=== PATIENT | female | born 1955 | race Caucasian/White ===

== ENCOUNTER 2019-09-20 17:23 | Inpatient (IN) | payer MEDICAID, MEDICARE ==
[~2019-09-20] VITALS: Ht 153.7 cm; Wt 92.1 kg
[~2019-09-20 17:23] MED LIST: ALBU8.5H8 INH; CELE200C PO; CLOT15CR5 TP; DIAZ5TAB4 PO; DICL100G16 TP; DULO60CA45 PO; FLUT16SP2 BNOSTRILS; GABA-536 PO; HYDR200T4 PO; ISOS60TA4 PO; MORP15TA PO; NEBI10TA2 PO; ONDA-97 PO; PRED10TA PO; RANI150C4 PO; RANO10003 PO; TRAM50TA2 PO; TRAZ-182 PO; [UNRECOGNIZED DRUG - CODE] MC
[2019-09-20] MEDS ORDERED: ONDANSETRON HCL/PF 4 MG/2 ML VIAL ONE (18:15)
[2019-09-20 18:20] LABS: BASOPHILS % (AUTO) 0.4 % (0.0-2.0); HEMATOCRIT 38 % (33-45); HEMOGLOBIN 12.4 g/dL (11.5-14.8); LYMPHOCYTES # (AUTO) 2.5 /CMM (0.8-4.8); LYMPHOCYTES % (AUTO) 22.1 % (20.0-44.0); MEAN CORPUSCULAR HGB CONC 33 g/dl (31.0-36.0); MEAN CORPUSCULAR VOLUME 91 fL (82-100); MONOCYTES # (AUTO) 0.8 /CMM (0.1-1.30); MONOCYTES % (AUTO) 7.4 % (2.0-12.0); NEUTROPHILS # (AUTO) 7.9 /CMM (1.8-8.9); NEUTROPHILS % (AUTO) 69.1 % (43.0-81.0); PLATELET COUNT (AUTO) 263 /CMM (150-450); RED BLOOD CELL COUNT(AUTO) 4.12 MIL/uL (4.0-5.2); WHITE BLOOD COUNT (AUTO) 11.4 K/uL (4.3-11.0)
--- NOTE | 2019-09-20 18:28 | NUR ---
BIBS FROM HOME TO ER BED 12. AAOX4. NOT IN RESP DISTRESS, AMBUALTORY. CAME IN FOR L CHEST PAIN SINCE SUNDAY AND NAUSEA W/ VOMMITING SINCE SUNDAY. PER PT, SHE MIGHT HAVE HAD FOOD POISONING LAST SUNDAY AND HAVE BEEN NAUSEOUS AND VOMMITING. PT ALSO VERBALIZED THAT SHE HAD CHEST PAIN SINCE MONDAY 05/29 [place] NON RADIATING. KHADIJAH MCDANIEL WAS AT THE BEDSIDE FOR EVAL. ORDERS RECEIVED NOTED AND CARRIED OUT. IV LINE ON R HAND 20GH. BLOO DRAWNAND SENT TO LAB.
[2019-09-20] MEDS ORDERED: ONDANSETRON HCL/PF 4 MG/2 ML VIAL IVP ONE (18:30)
[2019-09-20] MEDS ORDERED: IV NS 0.9% 500 ML BAG IV ONE (18:30)
[2019-09-20 18:31] LABS: CALCIUM, SERUM 9.5 mg/dL (8.5-10.1); CARBON DIOXIDE 29 mmol/L (21-32); CHLORIDE 103 mmol/L (98-107); CREATININE 1.1 mg/dL (0.6-1.3); GLUCOSE 91 mg/dL (74-106); POTASSIUM 3.8 mmol/L (3.5-5.1); SODIUM SERUM 140 mmol/L (136-145); UREA NITROGEN, BLOOD 13 mg/dL (7-18)
[2019-09-20 18:36] LABS: ALANINE AMINOTRANSFERASE 21 U/L (12-78); ALBUMIN 3.4 g/dL (3.4-5.0); ALKALINE PHOSPHATASE 110 U/L (46-116); ASPARTATE AMINOTRANSFERASE 15 U/L (15-37); BILIRUBIN,DIRECT 0.1 mg/dL (0.0-0.2); BILIRUBIN,TOTAL 0.4 mg/dL (0.2-1.0); LIPASE 84 U/L (73-393); TOTAL PROTEIN, SERUM 7.2 g/dL (6.4-8.2)
[2019-09-20 19:05] LABS: BILIRUBIN,URINE Negative (NEGATIVE); BLOOD, URINE Negative Ery/uL (NEGATIVE); COLOR,URINE Yellow (YELLOW); KETONES,URINE Negative (NEGATIVE); LEUKOCYTE ESTERASE ,URINE Trace (NEGATIVE); NITRITE, URINE Positive (NEGATIVE); PROTEIN,URINE Negative (NEGATIVE); UGLUCOSE Negative (NEGATIVE); UROBILINOGEN,URINE 0.2 EU/dL (0.2)
[2019-09-20 19:06] LABS: APPEARANCE,URINE HAZY (CLEAR)
[2019-09-20 19:28] LABS: BACTERIA,URINE Few /HPF (None Seen); COARSE GRANULAR CASTS,URINE Few /LPF (None Seen); RBC,URINE 0-2 /HPF (0-2); SQUAMOUS EPITHELIAL CELL,UR Few /HPF (None Seen)
--- NOTE | 2019-09-20 20:22 | NUR ---
COVID SWAB DONE AND SENT TO LAB
--- NOTE | 2019-09-20 22:02 | NUR ---
RN SUP CALLED FOR ROOM
--- NOTE | 2019-09-20 22:23 | NUR ---
KHADIJAH OLIVEIRA SPEAKING WITH DR. PARRA
--- NOTE | 2019-09-20 22:32 | NUR ---
REPORT GIVEN TO ISAIAH HOOD FOR LEENA.
--- NOTE | 2019-09-20 22:39 | NUR ---
PATIENT ARRIVED FROM ER, AWAKE, A/O X4. NO SOB NOTED. NO COMPLAIN OF CHEST PAIN. NO NAUSEA OR VOMITTING. CALL LIGHT WIHTIN REACH. BED IN LOWEST AND LOCKED POSITION. INSTRUCTED TO CALL FOR ASSISTANCE WHEN OOB, PATIENT VERBALIZED UNDERSTANDING. WITH RIGHT HAND IV INTACT. INFORMED MD - DR PARRA OF ADMISSION, WAITING FOR THE RESPONSE.
[2019-09-20 22:40] VITALS: BP 129/61
--- NOTE | 2019-09-20 22:50 | NUR ---
PT WAS TRANSPORTED TO UNIT ON [facility] WITH EMT AND RN AT BEDSIDE W/ ACLS PROTOCOL. NAD NOTED DURING TRANSPORT. PT AMBULATED WITH SBA USING A CANE.
[2019-09-20 23:00] VITALS: BP 129/61
[2019-09-21] MEDS ORDERED: ONDANSETRON HCL/PF 4 MG/2 ML VIAL IVP PRN
[2019-09-21] MEDS ORDERED: TRAMADOL HCL 50 MG TABLET PO PRN
[2019-09-21] MEDS ORDERED: TRAZODONE 50 MG TABLET PO PRN
[2019-09-21] MEDS ORDERED: MORPHINE SULFATE INJ 2 MG/ML DISP.SYRIN IV PRN
[2019-09-21] MEDS ORDERED: DIAZEPAM 5 MG TABLET PO PRN
--- NOTE | 2019-09-21 01:31 | NUR ---
PATIENT IN BED. CALL LIGHT WITHIN REACH. BED ALARM ON. BED IN LOWEST AND LOCKED POSITION.
[2019-09-21 03:57] VITALS: BP 120/58
[2019-09-21 06:02] VITALS: BP 120/58
--- NOTE | 2019-09-21 06:18 | NUR ---
[employer]USTRIAL [employer] SERVICE HELPER CLOSING NOTES: PATIENT WALKED TO THE BATHROOM WITH CANE, STEADY. VOIDED. WENT BACK TO THE BED.CALL LIGHT WITHIN REACH. BED ALARM ON. BED IN LOWEST AND LOCKED POSITION. PATIENT DENIES ANY NAUSEA, VOMITTING. PATIENT STATED THAT SHE IS STILL HAVING VERY SLIGHT CHEST PAIN, IT'S BETTER THAN IT WAS. SCD's ON BOTH LEGS ON.VITALS STABLE. AFEBRILE.
--- NOTE | 2019-09-21 07:20 | NUR ---
RN OPENING NOTES RECEIVED PATIENT IN BED, A/O X 4, ON ROOM AIR,,NO S/S OF RESPIRATORY DISTRESS. NOTED IV ACCESS RIGHT HAND # [address] ON [address] OF HEART WILL BE NPO. SAFETY MEASURES IN PLACE, BED LOCKED AND IN LOWEST POSITION, SIDE RAILS UP X 2. WILL CONTINUE TO MONITOR.
[2019-09-21 07:26] LABS: BASOPHILS % (AUTO) 0.3 % (0.0-2.0); HEMATOCRIT 36 % (33-45); HEMOGLOBIN 11.8 g/dL (11.5-14.8); LYMPHOCYTES # (AUTO) 3.1 /CMM (0.8-4.8); LYMPHOCYTES % (AUTO) 29.8 % (20.0-44.0); MEAN CORPUSCULAR HGB CONC 33 g/dl (31.0-36.0); MEAN CORPUSCULAR VOLUME 92 fL (82-100); MONOCYTES # (AUTO) 0.7 /CMM (0.1-1.30); MONOCYTES % (AUTO) 6.9 % (2.0-12.0); NEUTROPHILS # (AUTO) 6.3 /CMM (1.8-8.9); PLATELET COUNT (AUTO) 246 /CMM (150-450); RED BLOOD CELL COUNT(AUTO) 3.88 MIL/uL (4.0-5.2); WHITE BLOOD COUNT (AUTO) 10.3 K/uL (4.3-11.0)
[2019-09-21 07:45] LABS: ALANINE AMINOTRANSFERASE 19 U/L (12-78); ALKALINE PHOSPHATASE 88 U/L (46-116); ASPARTATE AMINOTRANSFERASE 13 U/L (15-37); BILIRUBIN,TOTAL 0.3 mg/dL (0.2-1.0); CALCIUM, SERUM 8.1 mg/dL (8.5-10.1); CARBON DIOXIDE 29 mmol/L (21-32); CHLORIDE 103 mmol/L (98-107); GLUCOSE 128 mg/dL (74-106); MAGNESIUM 2.3 mg/dL (1.8-2.4); PHOSPHORUS 4.6 mg/dL (2.5-4.9); POTASSIUM 3.5 mmol/L (3.5-5.1); SODIUM SERUM 141 mmol/L (136-145); TOTAL PROTEIN, SERUM 6.5 g/dL (6.4-8.2); UREA NITROGEN, BLOOD 13 mg/dL (7-18)
[2019-09-21 07:47] LABS: CHOLESTEROL 110 mg/dL (<200); HDL CHOLESTEROL 47 mg/dL (40-60); LDL 41 mg/dL (0-99); THYROID STIMULATING HORMONE 3.148 uIU/mL (0.358-3.74); TRIGLYCERIDES 128 mg/dL (30-150)
[2019-09-21 08:00] VITALS: BP 118/81
[2019-09-21] MEDS ORDERED: methylPREDNISolone SOD SUCC 125 MG/2ML VIAL IV ONE (08:00)
[2019-09-21] MEDS ORDERED: diphenhydrAMINE HCL 50 MG CAPSULE PO ONE (08:00)
[2019-09-21] MEDS: PANTOPRAZOLE 40 MG TABLET.DR PO SCH (08:17)
[2019-09-21 08:28] LABS: IRON, SERUM 47 ug/dl (50-175); TOTAL IRON BINDING CAPACITY 267 ug/dl (250-450)
[2019-09-21 08:32] LABS: FERRITIN 26 ng/mL (8-388)
[2019-09-21] MEDS: CEFTRIAXONE 1 G in IV D5W 50 ML IV SCH (08:50)
[2019-09-21] MEDS ORDERED: ISOSORBIDE MONONITRATE 60 MG TAB.SR.24H PO SCH (09:00)
[2019-09-21] MEDS: CELECOXIB 100 MG CAPSULE PO SCH (09:05)
[2019-09-21] MEDS: GABAPENTIN 400 MG CAPSULE PO SCH ×3 (09:05→16:08)
[2019-09-21] MEDS: ASPIRIN EC 325 MG TABLET.DR PO SCH (09:05)
[2019-09-21] MEDS: predniSONE 10 MG TABLET PO SCH (09:06)
[2019-09-21] MEDS: DULOXETINE HCL 30 MG CAPSULE.DR PO SCH (09:07)
[2019-09-21] MEDS: RANOLAZINE 500 MG TAB.ER.12H PO SCH (09:13)
[2019-09-21] MEDS: HYDROXYCHLOROQUINE 200 MG TABLET PO SCH (09:13)
[2019-09-21] MEDS: ENOXAPARIN SODIUM 40 MG/0.4 ML DISP.SYRIN SQ SCH (09:14)
--- NOTE | 2019-09-21 09:30 | NUR ---
RN NOTES CALLED PHARMACY, ISOSORBIDE NOT IN STOCKED CASSETTE NOR BOTH OMNICELLS. .
--- NOTE | 2019-09-21 11:45 | NUR ---
RN NOTES 0820 - TUNG FROM RADIOLOGY CALLED REGARDING A CT OF THE HEART. TO KEEP PT NPO , PER TUNG CT WILL BE DONE AROUND 1400. 1145- OBTAINED A SIGNED CONSENT FROM PATIENT AND IV l WRIST # 18 BY MICHEAL COLON.
--- NOTE | 2019-09-21 15:30 | NUR ---
FOLLOWED UP WITH RADIOLOGY REGARDING CT OF HEART, PER RADIOLOGY THEY NEED A NURSE. CALLED NURSING NUT THREADER TO CONFIRM, PER NS OKAY FOR PT TO HAVE DINNER AND RETURN NPO AFTER MIDNIGHT, CT OF HEART WILL NOT BE DONE TODAY.
[2019-09-21 16:00] VITALS: BP 134/70
--- NOTE | 2019-09-21 16:18 | NUR ---
RN NOTES, PATIENT A/O X 4 , SHE GAVE A VERBAL OKAY FOR RN TO SPEAK TO FAMILY MEMBER (MANGO) REGARDING HER STATUS.
--- NOTE | 2019-09-21 18:44 | NUR ---
RN CLOSING NOTES WILL ENDORSE PATIENT TO PM NURSE. PATIENT IN BED, A/O X 4, ON ROOM AIR,,NO S/S OF RESPIRATORY DISTRESS. IV ACCESS RIGHT HAND # 20 SL AND LEFT WRIST # 18, PATIENT AND FLUSHED. PATIENT WAITING ON CT OF HEART WILL BE NPO AFTER MIDNIGHT. SAFETY MEASURES IN PLACE, BED LOCKED AND IN LOWEST POSITION, SIDE RAILS UP X 2. WILL CONTINUE TO MONITOR.
--- NOTE | 2019-09-21 19:04 | NUR ---
MS RN OPENING NOTES: RECEIVED PATIENT IN BED, AWAKE,A/O X4. NO SOB NOTED. NO COMPLAIN OF PAIN. CALL LIGHT WITHIN REACH. BED ALARM TURNED ON. BED IN LOWEST AND LOCKED POSITION. SCD's PLACED BACK TO THE LEGS. NPO POST MN PATIENT IS AWARE,VERBALIZED UNDERSTANDING. CITY PLANNING AIDE AWARE.
--- NOTE | 2019-09-21 19:10 | NUR ---
RN NOTES MAHIN HIGHTOWER ENDORSED A MESSAGE FROM PATIENT. ADD CONTACT: CHI LIN . WILL ALSO ADD IN FACE-SHEET.
[2019-09-21 20:00] VITALS: BP 144/72
[2019-09-21 20:33] VITALS: BP 144/72
[2019-09-22 04:15] VITALS: BP 137/65
--- NOTE | 2019-09-22 04:15 | NUR ---
PATIENT COMPLAINED OF CHEST PAIN/TIGHTNESS, V/S TAKEN AND RECORDED, WNL. PATIENT COMPLAINED OF SHORTNESS OF BREATH, OXYGEN AT 3L/MIN. GIVEN, INFORMED DR PARRA. CHARGE NURSE MADE AWARE.
--- NOTE | 2019-09-22 04:15 | NUR ---
CHEST PAIN LEVEL IS 7/10.
[2019-09-22] MEDS ORDERED: NITROGLYCERIN 0.4 MG/TAB BOTTLE SL PRN (05:00)
--- NOTE | 2019-09-22 05:05 | NUR ---
CALLED THE PHARMACY TO VERIFY THE NITRO MED ORDERED.
--- NOTE | 2019-09-22 05:12 | NUR ---
PATIENT STATES THAT SHE TOOK HER OWN MED- NITROGLYCERINE 0.4MG 1 TAB SL AND ALBUTEROL 2 PUFFS INH. ADVISED PATIENT NOT TO TAKE OWN MEDS., PATIENT VERBALIZED UNDERSTANDING.
--- NOTE | 2019-09-22 05:16 | NUR ---
MAHIN BELL ASSISTED THE PATIENT TO THE BATHROOM.
--- NOTE | 2019-09-22 05:32 | NUR ---
PATIENT STATES THE CHEST PAIN WENT AWAY. PATIENT IN BED, HOB ELEVATED. WITH O2 AT 3L/MIN NASAL CANNULA. PATIENT IS COMFORTABLE.
--- NOTE | 2019-09-22 06:13 | NUR ---
MS RN CLOSING NOTES: PATIENT IN BED, AWAKE A/O X4. PATIENT IS COMFORTABLE AT THIS TIME. NO C/O CHEST PAIN. CALL LIGHT WITHIN REACH. BED ALARM ON. BED IN LOWEST AND LOCKED POSITION. WITH O2 AT 3L/MIN NC. HOB ELEVATED AT 30 DEGREES. NPO.
[2019-09-22 06:42] LABS: BASOPHILS % (AUTO) 0.2 % (0.0-2.0); HEMATOCRIT 40 % (33-45); HEMOGLOBIN 13.1 g/dL (11.5-14.8); LYMPHOCYTES # (AUTO) 1.2 /CMM (0.8-4.8); LYMPHOCYTES % (AUTO) 8.9 % (20.0-44.0); MEAN CORPUSCULAR HGB CONC 33 g/dl (31.0-36.0); MEAN CORPUSCULAR VOLUME 92 fL (82-100); MONOCYTES # (AUTO) 0.4 /CMM (0.1-1.30); MONOCYTES % (AUTO) 3.2 % (2.0-12.0); NEUTROPHILS # (AUTO) 11.5 /CMM (1.8-8.9); NEUTROPHILS % (AUTO) 87.7 % (43.0-81.0); PLATELET COUNT (AUTO) 277 /CMM (150-450); RED BLOOD CELL COUNT(AUTO) 4.38 MIL/uL (4.0-5.2); WHITE BLOOD COUNT (AUTO) 13.1 K/uL (4.3-11.0)
[2019-09-22 07:10] LABS: CREATININE 1.1 mg/dL (0.6-1.3); MAGNESIUM 2.5 mg/dL (1.8-2.4); PHOSPHORUS 4.3 mg/dL (2.5-4.9); POTASSIUM 3.9 mmol/L (3.5-5.1)
[2019-09-22] MEDS ORDERED: METOPROLOL TARTRATE INJ 5 MG/5 ML AMPUL IVP PRN (07:30)
[2019-09-22] MEDS ORDERED: NITROGLYCERIN 0.4 MG/TAB BOTTLE SL ONE (07:30)
--- NOTE | 2019-09-22 07:30 | NUR ---
CONSENT FOR CT ANGIO OF THE HEART SIGNED BY THE PATIENT AND ATTACHED TO THE CHART, ENDORSED.
--- NOTE | 2019-09-22 07:40 | NUR ---
RN MS JACKSON NOTES PATIENT IS AWAKE AND ALERT A/O X 4. WITH NO SIGNS OF DISTRESS IN ROOM AIR. IV ON THE R HAND #20G INTACT SL AND IV L WRIST #18G INTACT SL. COMPLAINS OF NO PAIN AT THIS MOMENT. BED IS IN LOW POSITION WITH SIDE RAILS UP X 2 FOR SAFETY. CALL LIGHT WITHIN REACH. WILL CONTINUE TO MONITOR.
[2019-09-22 08:09] VITALS: BP 138/62
[2019-09-22] MEDS ORDERED: methylPREDNISolone SOD SUCC 125 MG/2ML VIAL IV ONE (08:30)
[2019-09-22] MEDS ORDERED: diphenhydrAMINE HCL 50 MG CAPSULE PO ONE (08:30)
[2019-09-22] MEDS: predniSONE 10 MG TABLET PO SCH (09:00)
[2019-09-22] MEDS: ASPIRIN EC 325 MG TABLET.DR PO SCH ×2 (09:00→13:01)
[2019-09-22] MEDS ORDERED: ISOSORBIDE MONONITRATE (30MG) 30 MG TAB.SR.24H PO SCH (09:00)
[2019-09-22] MEDS: ENOXAPARIN SODIUM 40 MG/0.4 ML DISP.SYRIN SQ SCH (09:00)
[2019-09-22] MEDS ORDERED: PILOCARPINE HCL 5 MG TABLET PO SCH (09:00)
--- NOTE | 2019-09-22 09:00 | NUR ---
DID NOT ADMINISTERED PREDNISONE D/T GETTING SOLU-MEDROL IVP ONE TIME BEFORE GOING TO CT ANGIO FOR ANAPHYLAXIS.
[2019-09-22] MEDS ORDERED: IOHEXOL-350 100 ML VIAL IV ONE (09:25)
[2019-09-22] MEDS ORDERED: IV NS 0.9% 250 ML IV ONE (09:26)
--- NOTE | 2019-09-22 10:42 | NUR ---
RN NOTES: CTA procedure: Patient verbalizes understanding regarding the procedure, patient signed consent. IV g 18 inserted at right AC with good back flow of blood. Patient tolerated the CTA, denies any discomfort or pain at this time. no signs of any adverse reaction noted. Patient is stable to be transfer back to her room, report given to Adele Maher RN.
[2019-09-22] MEDS: GABAPENTIN 400 MG CAPSULE PO SCH ×3 (12:05→17:00)
[2019-09-22] MEDS: CELECOXIB 100 MG CAPSULE PO SCH (12:06)
[2019-09-22] MEDS: PANTOPRAZOLE 40 MG TABLET.DR PO SCH (12:06)
[2019-09-22] MEDS: HYDROXYCHLOROQUINE 200 MG TABLET PO SCH (12:44)
[2019-09-22] MEDS: DULOXETINE HCL 30 MG CAPSULE.DR PO SCH (12:44)
[2019-09-22] MEDS: RANOLAZINE 500 MG TAB.ER.12H PO SCH (12:57)
[2019-09-22] MEDS: CEFTRIAXONE 1 G in IV D5W 50 ML IV SCH (13:06)
[2019-09-22 16:38] VITALS: BP 132/60
--- NOTE | 2019-09-22 17:00 | NUR ---
DID NOT ADMINISTER GABAPENTIN PO MED BECAUSE LAST GIVEN AT 1500. ITS Q4H.
--- NOTE | 2019-09-22 17:22 | NUR ---
PATIENT VITAL SIGNS ARE STABLE, PATIENT COMPLAINTS OF NO PAIN AND HAS NO SIGNS OF SOB AND NO SIGNS OF DISTRESS. PATIENT DISCHARGE INSTRUCTIONS WERE EXPLAINED VERBALLY, TO CONTINUE WITH PRESCRIBED MEDICATIONS, FOLLOW UP WITH PRIMARY CARE DOCTOR AND RETURN TO THE ER IN CASE OF AN EMERGENCY. SHE VERBALLY READ INSTRUCTIONS BACK. IV'S WERE REMOVED WITH NO SIGNS OF BLEEDING AND COVERED. BELONGING LIST WAS COMPLETED AND SIGNED. LEFT THE HOSPITAL VIA WHEELCHAIR BY MAHIN WELLS AND GOT PICKED UP BY A PRIVATE CAR.
== END 2019-09-22 17:20 | disposition home or self-care (01) | DRG 198 ==
LOC: ER 17:26 → TELE 22:10 → MED 09-21 08:20
PROVIDERS: ADMIT Internal Medicine; ATTEND Internal Medicine
DX: R07.89 Other chest pain (principal); N39.0 Urinary tract infection, site not specified; E78.5 Hyperlipidemia, unspecified; E66.9 Obesity, unspecified; J45.909 Unspecified asthma, uncomplicated; M79.7 Fibromyalgia; Z87.820 Personal history of traumatic brain injury; Z79.899 Other long term (current) drug therapy; Z87.11 Personal history of peptic ulcer disease; M32.9 Systemic lupus erythematosus, unspecified; I25.10 Atherosclerotic heart disease of native coronary artery without angina pectoris; G40.909 Epilepsy, unspecified, not intractable, without status epilepticus; G89.29 Other chronic pain; F32.9 Major depressive disorder, single episode, unspecified; F41.9 Anxiety disorder, unspecified; K21.9 Gastro-esophageal reflux disease without esophagitis; Z68.39 Body mass index [BMI] 39.0-39.9, adult; D64.9 Anemia, unspecified; K11.7 Disturbances of salivary secretion; Z95.5 Presence of coronary angioplasty implant and graft; R53.1 Weakness
CPT/HCPCS: 36415; 71045-TC; 75574; 80048-TC; 80053-TC; 80061-TC; 80076-TC; 81000-TC; 82728-TC; 83540-TC; 83690-TC; 83735-TC; 83880; 84100-TC; 84443-TC; 84484-TC; 85025-TC; 87081-TC; 87086-TC; 93307-TC; G0378; J0696; J1650; J2405; J2930; J7040; J7050; J7060; Q0163; Q9967

== ENCOUNTER 2020-04-30 12:29 | Inpatient (IN) | payer MEDICAID ==
[~2020-04-30] VITALS: Ht 165.1 cm; Wt 90.7 kg
[~2020-04-30 12:29] MED LIST changes: -ISOS60TA4 PO; +ISOS60TA72 PO
--- NOTE | 2020-04-30 12:35 | NUR ---
Chest Pain x3days on/off, more on than off. Worse now. Took NTG and Asa. Patient a/ox4, breathing even and unlabored, no sob noted, needs attended, changed into a gown, attached to the carburetor mechanic. No distress noted.
--- NOTE | 2020-04-30 12:45 | NUR ---
IV LINE ESTABLISHED, BLOOD DRAWN AND SENT TO LAB.
[2020-04-30 12:54] LABS: BASOPHILS # (AUTO) 0.2 /CMM (0.0-0.2); BASOPHILS % (AUTO) 1.2 % (0.0-2.0); HEMATOCRIT 37 % (33-45); HEMOGLOBIN 12.2 g/dL (11.5-14.8); LYMPHOCYTES # (AUTO) 2.7 /CMM (0.8-4.8); LYMPHOCYTES % (AUTO) 19.6 % (20.0-44.0); MEAN CORPUSCULAR HGB CONC 33 g/dl (31.0-36.0); MEAN CORPUSCULAR VOLUME 89 fL (82-100); MONOCYTES # (AUTO) 1.1 /CMM (0.1-1.30); MONOCYTES % (AUTO) 7.8 % (2.0-12.0); NEUTROPHILS # (AUTO) 9.9 /CMM (1.8-8.9); NEUTROPHILS % (AUTO) 70.4 % (43.0-81.0); PLATELET COUNT (AUTO) 267 /CMM (150-450)
[2020-04-30 13:00] LABS: CALCIUM, SERUM 8.5 mg/dL (8.5-10.1); CARBON DIOXIDE 30 mmol/L (21-32); CHLORIDE 105 mmol/L (98-107); CREATININE 1.1 mg/dL (0.6-1.3); GLUCOSE 101 mg/dL (74-106); POTASSIUM 3.6 mmol/L (3.5-5.1); SODIUM SERUM 145 mmol/L (136-145); UREA NITROGEN, BLOOD 14 mg/dL (7-18)
[2020-04-30] MEDS ORDERED: ONDANSETRON HCL/PF 4 MG/2 ML VIAL IVP ONE (13:00)
[2020-04-30] MEDS ORDERED: PANTOPRAZOLE 40 MG VIAL IV ONE (13:00)
[2020-04-30] MEDS ORDERED: MORPHINE SULFATE INJ 2 MG/ML DISP.SYRIN IV ONE (13:00)
[2020-04-30] MEDS ORDERED: PANTOPRAZOLE 40 MG VIAL ONE (13:01)
[2020-04-30] MEDS ORDERED: ONDANSETRON HCL/PF 4 MG/2 ML VIAL ONE (13:01)
[2020-04-30] MEDS ORDERED: MORPHINE SULFATE INJ 4 MG/ML DISP.SYRIN ONE (13:01)
--- NOTE | 2020-04-30 13:09 | NUR ---
US TECH AT BEDSIDE
[2020-04-30 13:26] LABS: LYMPHOCYTES % (MANUAL) 29 % (16-48); MONOCYTES % (MANUAL) 4 % (0-11.0); NEUTROPHILS % (MANUAL) 67 (42-76)
[2020-04-30 13:28] LABS: ALBUMIN 3.2 g/dL (3.4-5.0); BILIRUBIN,DIRECT 0.1 mg/dL (0.0-0.2); BILIRUBIN,TOTAL 0.2 mg/dL (0.2-1.0)
[2020-04-30] MEDS ORDERED: ATOR40TA PO (13:58)
[2020-04-30] MEDS ORDERED: HYDR200T4 PO (13:58)
[2020-04-30] MEDS ORDERED: CHOL500062 PO (13:58)
[2020-04-30] MEDS ORDERED: NITR0.4T48 SL (13:58)
[2020-04-30] MEDS ORDERED: FAMO20TA8 PO (13:58)
[2020-04-30] MEDS ORDERED: METO-358 PO (13:58)
[2020-04-30] MEDS ORDERED: LEVE250T4 PO (13:58)
[2020-04-30] MEDS ORDERED: OXYB-58 PO (13:58)
[2020-04-30] MEDS ORDERED: CYCL30DR OP (13:58)
--- NOTE | 2020-04-30 14:12 | NUR ---
FROM [facility] ADMIT UNDER DR. SORENSON [phone] PER MICHA DURÁN
--- NOTE | 2020-04-30 14:30 | NUR ---
CALLED [facility] TO PRESENT
--- NOTE | 2020-04-30 14:35 | NUR ---
CALLED [facility] FOR CARDIO CONSULT
--- NOTE | 2020-04-30 14:36 | NUR ---
negative rapipd covid test.
--- NOTE | 2020-04-30 14:40 | NUR ---
CALLED FOR TELE BED.
[2020-04-30] MEDS ORDERED: FLUT10.62 IH (14:50)
--- NOTE | 2020-04-30 15:00 | NUR ---
GOT BED 109
--- NOTE | 2020-04-30 15:13 | NUR ---
REPORT GIVEN TO ELLYN COLON.
[2020-04-30] MEDS ORDERED: IOHEXOL-350 100 ML VIAL IV ONE (15:59)
[2020-04-30] MEDS ORDERED: IV NS 0.9% 250 ML IV ONE (16:00)
[2020-04-30] MEDS ORDERED: DIAZEPAM 5 MG TABLET PO PRN (16:00)
[2020-04-30] MEDS ORDERED: FLUTICASONE 44MCG 1 EA INHALER IH PRN (16:00)
[2020-04-30] MEDS ORDERED: CT SWABBABLE VALVE TRANS SET 1 EA INFUS.SET MC ONE (16:00)
[2020-04-30] MEDS ORDERED: TRAMADOL HCL 50 MG TABLET PO PRN (16:00)
[2020-04-30] MEDS ORDERED: NITROGLYCERIN 0.4 MG/TAB BOTTLE SL ONE (16:30)
[2020-04-30] MEDS ORDERED: METOPROLOL TARTRATE INJ 5 MG/5 ML AMPUL IVP PRN (16:30)
[2020-04-30] MEDS ORDERED: diphenhydrAMINE HCL 50 MG/ML VIAL ONE (16:31)
[2020-04-30] MEDS ORDERED: NITROGLYCERIN 0.4 MG/TAB BOTTLE ONE (16:32)
--- NOTE | 2020-04-30 16:59 | NUR ---
CTA DONE, PATIENT TOLERATED PROCEDURE WELL. BENADRYL GIVEN X1 PROPHYLACTIC. ENDORSED TO INPATIENT RN. NEEDS ATTENDED.
[2020-04-30] MEDS ORDERED: DICLOFENAC TOPICAL 100 GM GEL..GM. TP SCH (17:00)
[2020-04-30] MEDS ORDERED: diphenhydrAMINE HCL 50 MG/ML VIAL IV ONE (17:00)
[2020-04-30] MEDS: LEVETIRACETAM (250 MG) 250 MG TABLET PO SCH (18:20)
[2020-04-30] MEDS: GABAPENTIN 300 MG CAPSULE PO SCH (18:20)
[2020-04-30 20:00] VITALS: BP 101/47
--- NOTE | 2020-04-30 20:05 | NUR ---
RN NOTE PT RECEIVED IN BED, A/O X4, ON RA SATING 98%, HAS UNLABORED BRATHING, DENIES ANY PAIN ON TELE MONITOR SHOWING SR WITH HR IN 60s. SAFETY MEASURES IN PLACE.
[2020-04-30] MEDS ORDERED: ATORVASTATIN 40 MG TABLET PO SCH (22:00)
[2020-05-01] VITALS: BP 141/67
[2020-05-01 04:00] VITALS: BP 130/42
[2020-05-01 06:20] LABS: BASOPHILS % (AUTO) 0.2 % (0.0-2.0); EOSINOPHILS % (AUTO) 0.8 % (0.0-6.0); HEMATOCRIT 35 % (33-45); HEMOGLOBIN 11.3 g/dL (11.5-14.8); LYMPHOCYTES # (AUTO) 3.8 /CMM (0.8-4.8); LYMPHOCYTES % (AUTO) 27.1 % (20.0-44.0); MEAN CORPUSCULAR HGB CONC 33 g/dl (31.0-36.0); MEAN CORPUSCULAR VOLUME 89 fL (82-100); MONOCYTES # (AUTO) 0.8 /CMM (0.1-1.30); MONOCYTES % (AUTO) 5.8 % (2.0-12.0); NEUTROPHILS # (AUTO) 9.3 /CMM (1.8-8.9); NEUTROPHILS % (AUTO) 66.1 % (43.0-81.0); PLATELET COUNT (AUTO) 239 /CMM (150-450); RED BLOOD CELL COUNT(AUTO) 3.86 MIL/uL (4.0-5.2); WHITE BLOOD COUNT (AUTO) 14.1 K/uL (4.3-11.0)
--- NOTE | 2020-05-01 07:20 | NUR ---
RN OPENING NOTES RECEIVED PT AWAKE, A/O X4. ON RA SATING 98%. NO SOB OR ANY ACUTE RESPIRATORY DISTRESS AT THIS TIME. NO PAIN REPORTED. ON TELE MONITOR SHOWING SR. SKIN IS INTACT. IV ACCESS AT RAC #20 AND R HAND #20 BOTH INTACT, PATENT AND FLUSHED. SAFETY MEASURES IN PLACE. CALL LIGHT WITHIN REACH. BED LOCKED AND AT LOWEST POSITION WITH SIDE RAILS UP X2. WILL CONTINUE TO MONITOR.
[2020-05-01 07:33] LABS: CALCIUM, SERUM 8.7 mg/dL (8.5-10.1); CREATININE 1.2 mg/dL (0.6-1.3); POTASSIUM 4.2 mmol/L (3.5-5.1)
--- NOTE | 2020-05-01 07:40 | NUR ---
RN NOTE NO ACUTE CHANGES DURING MY SHIFT, PT REMAINED STABLE REPORT GIVEN TO ONCOMING SHIFT FOR LEENA.
[2020-05-01 08:00] VITALS: BP 120/48
[2020-05-01] MEDS ORDERED: OXYBUTYNIN CHLORIDE ER 5 MG TAB PO SCH (09:00)
[2020-05-01] MEDS ORDERED: HYDROXYCHLOROQUINE 200 MG TABLET PO SCH (09:00)
[2020-05-01] MEDS ORDERED: FAMOTIDINE (20 MG) 20 MG TABLET PO SCH (09:00)
[2020-05-01] MEDS ORDERED: predniSONE 10 MG TABLET PO SCH (09:00)
[2020-05-01] MEDS: LEVETIRACETAM (250 MG) 250 MG TABLET PO SCH (09:10)
[2020-05-01] MEDS: GABAPENTIN 300 MG CAPSULE PO SCH ×2 (09:10→12:19)
[2020-05-01 12:00] VITALS: BP 136/62
--- NOTE | 2020-05-01 13:38 | NUR ---
RN CLOSING NOTES DISCHARGED PT TO HOME ACCOMPANIED VIA LYFT. STABLE CONDITION. SKIN IS INTACT. NO PAIN REPORTED AT THIS TIME. DISCHARGE INSTRUCTIONS GIVEN TO PT. VERBALIZED UNDERSTANDING. VACCINATION IS UP TO DATE.
== END 2020-05-01 13:51 | disposition home or self-care (01) | DRG 198 ==
LOC: ER 12:34 → TELE1 15:39
PROVIDERS: ADMIT Internal Medicine; ATTEND Internal Medicine
DX: R07.89 Other chest pain (principal); M32.9 Systemic lupus erythematosus, unspecified; M79.7 Fibromyalgia; Z20.822 Contact with and (suspected) exposure to COVID-19; E78.5 Hyperlipidemia, unspecified; E66.9 Obesity, unspecified; I25.10 Atherosclerotic heart disease of native coronary artery without angina pectoris; J45.909 Unspecified asthma, uncomplicated; Z68.33 Body mass index [BMI] 33.0-33.9, adult; F41.9 Anxiety disorder, unspecified; Z87.11 Personal history of peptic ulcer disease
CPT/HCPCS: 36415; 71045-TC; 75574; 76700-TC; 80048-TC; 80076-TC; 83690-TC; 83880; 84484-TC; 85025-TC; 87081-TC; 93307-TC; C9113; C9803; G0378; J1200; J2270; J2405; J7050; Q9967

== ENCOUNTER 2020-12-28 16:53 | Emergency (ER) | payer OTHER ==
[~2020-12-28] VITALS: Ht 165.1 cm; Wt 91.2 kg
[~2020-12-28 16:53] MED LIST changes: -ALBU8.5H8 INH; +ATOR40TA PO; -CELE200C PO; +CHOL500062 PO; -CLOT15CR5 TP; +CYCL30DR EACHEYE; +FAMO20TA8 PO; +FLUT10.62 IH; -FLUT16SP2 BNOSTRILS; +LEVE250T4 PO; +METO-358 PO; -MORP15TA PO; -NEBI10TA2 PO; +NITR0.4T48 SL; -ONDA-97 PO; +OXYB-58 PO; -RANI150C4 PO; -TRAZ-182 PO; -[UNRECOGNIZED DRUG - CODE] MC
--- NOTE | 2020-12-28 16:55 | NUR ---
WARREN FROM URGENT CARE. PT C/O SHARP PAIN SINCE NOON. ASA 325 MG AND 1 NITRO SPRAY WAS GIVEN BY EMS. PT CAME IN WITH A L 20G IV ON R HAND. VITAL SIGNS WITHIN NORMAL LIMITS. PT IS A&OX4. EKG WAS TAKEN. DR NEFF AT BESIDE. LAB AT BEDSIDE. PT COVID TEST WAS COLLECTED AND SENT TO LAB.
[2020-12-28] MEDS ORDERED: NITROGLYCERIN 0.4 MG/TAB BOTTLE SL ONE (17:00)
[2020-12-28] MEDS ORDERED: NITROGLYCERIN 0.4 MG/TAB BOTTLE ONE (17:06)
[2020-12-28 17:32] LABS: CALCIUM, SERUM 8.8 mg/dL (8.5-10.1); CARBON DIOXIDE 24 mmol/L (21-32); CHLORIDE 104 mmol/L (98-107); CREATININE 1.1 mg/dL (0.6-1.3); GLUCOSE 140 mg/dL (74-106); POTASSIUM 4.3 mmol/L (3.5-5.1); SODIUM SERUM 140 mmol/L (136-145); UREA NITROGEN, BLOOD 12 mg/dL (7-18)
[2020-12-28 17:35] LABS: BASOPHILS % (AUTO) 0.4 % (0.0-2.0); EOSINOPHILS % (AUTO) 2.6 % (0.0-6.0); HEMATOCRIT 36 % (33-45); HEMOGLOBIN 12.1 g/dL (11.5-14.8); LYMPHOCYTES # (AUTO) 2.5 K/uL (0.8-4.8); MEAN CORPUSCULAR HGB CONC 33 g/dl (31.0-36.0); MEAN CORPUSCULAR VOLUME 95 fL (82-100); MONOCYTES # (AUTO) 0.9 K/uL (0.1-1.30); MONOCYTES % (AUTO) 7.6 % (2.0-12.0); NEUTROPHILS # (AUTO) 8.6 K/uL (1.8-8.9); NEUTROPHILS % (AUTO) 69.4 % (43.0-81.0); PLATELET COUNT (AUTO) 261 K/uL (150-450); WHITE BLOOD COUNT (AUTO) 12.5 K/uL (4.3-11.0)
[2020-12-28] MEDS ORDERED: ALBU8.5H8 IH (18:19)
[2020-12-28] MEDS ORDERED: PILO5TAB10 PO (18:19)
[2020-12-28] MEDS ORDERED: FLUT16SP16 (18:19)
[2020-12-28] MEDS ORDERED: MIRT-90 PO (18:19)
[2020-12-28] MEDS ORDERED: FLUT1BLS11 INH (18:19)
--- NOTE | 2020-12-28 19:59 | NUR ---
TOOK OVER PT CARE. PT AAOX4. RESTING COMFORTABLY. AWARE OF PLAN OF CARE.
--- NOTE | 2020-12-28 23:37 | NUR ---
PT STATING SHE DOES NOT WANT TO STAY IN THE ED. REQUESTING TO [facility]uyet.
[2020-12-28] MEDS ORDERED: NITR0.4T SL (23:39)
--- NOTE | 2020-12-28 23:45 | NUR ---
Patient does not wish to proceed with medical care recommended by Dr. Manuel Avila. Patient given information related to possible complications, up to and including , which could occur as a result of leaving the hospital at this time. Patient verbalizes understanding of risks involved due to leaving against medical advice. Patient has signed AMA form. IV removed. Catheter intact and site benign. Pressure and 4x4 applied to site. No bleeding noted.
[2020-12-29 00:47] VITALS: BP 123/69
== END 2020-12-29 00:48 | disposition left against medical advice (07) ==
LOC: ER 16:56
DX: R07.9 Chest pain, unspecified (principal); M79.7 Fibromyalgia; G40.909 Epilepsy, unspecified, not intractable, without status epilepticus; Z20.822 Contact with and (suspected) exposure to COVID-19; Z87.820 Personal history of traumatic brain injury; I25.10 Atherosclerotic heart disease of native coronary artery without angina pectoris; Z88.0 Allergy status to penicillin; Z88.6 Allergy status to analgesic agent; Z91.041 Radiographic dye allergy status; Z91.010 Allergy to peanuts; F32.9 Major depressive disorder, single episode, unspecified; Z79.899 Other long term (current) drug therapy; Z53.29 Procedure and treatment not carried out because of patient's decision for other reasons
CPT/HCPCS: 36415; 71045; 80048; 82550; 83880; 84484; 85025; 87081; 87426; 93005; 99291; C9803

== ENCOUNTER 2022-07-19 16:14 | Emergency (ER) | payer OTHER, BC ==
[~2022-07-19] VITALS: Ht 165.1 cm; Wt 91.2 kg
[~2022-07-19 16:14] MED LIST changes: +ALBU8.5H8 IH; -CHOL500062 PO; -FAMO20TA8 PO; -FLUT10.62 IH; +FLUT16SP16; +FLUT1BLS11 INH; +MIRT-90 PO; +NITR0.4T SL; -NITR0.4T48 SL; -OXYB-58 PO; +PILO5TAB10 PO; -PRED10TA PO
[2022-07-19 16:20] VITALS: BP 130/60
--- NOTE | 2022-07-19 16:23 | NUR ---
CALLED CODE STROKE.
--- NOTE | 2022-07-19 16:26 | NUR ---
Fatimah oleary in [facility] - 07/19/22 at 1628 by BRIELLE CODE STROKE
--- NOTE | 2022-07-19 16:27 | NUR ---
PT TO CT VIA ACLS PROTOCALS.
--- NOTE | 2022-07-19 16:30 | NUR ---
CALLED [facility] [phone] FLAKO PADGETT.
[2022-07-19 16:32] LABS: BASOPHILS # (AUTO) 0.1 K/uL (0.0-0.2); BASOPHILS % (AUTO) 0.7 % (0.0-2.0); EOSINOPHILS % (AUTO) 3.2 % (0.0-6.0); HEMATOCRIT 37 % (33-45); HEMOGLOBIN 11.2 g/dL (11.5-14.8); LYMPHOCYTES # (AUTO) 2.6 K/uL (0.8-4.8); LYMPHOCYTES % (AUTO) 21.6 % (20.0-44.0); MEAN CORPUSCULAR HGB CONC 31 g/dl (31.0-36.0); MEAN CORPUSCULAR VOLUME 76 fL (82-100); MONOCYTES # (AUTO) 0.7 K/uL (0.1-1.30); MONOCYTES % (AUTO) 5.8 % (2.0-12.0); NEUTROPHILS # (AUTO) 8.2 K/uL (1.8-8.9); NEUTROPHILS % (AUTO) 68.7 % (43.0-81.0); PLATELET COUNT (AUTO) 296 K/uL (150-450); WHITE BLOOD COUNT (AUTO) 11.9 K/uL (4.3-11.0)
--- NOTE | 2022-07-19 16:37 | NUR ---
PT BACK FROM CT VIA ACLS PROTOCALS.
[2022-07-19 16:43] LABS: CALCIUM, SERUM 9.2 mg/dL (8.5-10.1); CARBON DIOXIDE 26 mmol/L (21-32); CHLORIDE 107 mmol/L (98-107); CREATININE 1.1 mg/dL (0.6-1.3); GLUCOSE 96 mg/dL (74-106); SODIUM SERUM 142 mmol/L (136-145); UREA NITROGEN, BLOOD 13 mg/dL (7-18)
[2022-07-19 16:49] LABS: ALANINE AMINOTRANSFERASE 18 U/L (12-78); ALBUMIN 3.7 g/dL (3.4-5.0); ALKALINE PHOSPHATASE 174 U/L (46-116); ASPARTATE AMINOTRANSFERASE 11 U/L (15-37); BILIRUBIN,DIRECT 0.1 mg/dL (0.0-0.2); BILIRUBIN,TOTAL 0.3 mg/dL (0.2-1.0); TOTAL PROTEIN, SERUM 7.8 g/dL (6.4-8.2)
--- NOTE | 2022-07-19 16:54 | NUR ---
CALLED [facility] [phone] PADGETT TO BEAM-IN AND EVAL.
--- NOTE | 2022-07-19 17:09 | NUR ---
MOVE SHEET SUBMITTED.
[2022-07-19] MEDS ORDERED: diphenhydrAMINE HCL 50 MG/ML VIAL IV ONE (17:30)
[2022-07-19] MEDS ORDERED: Magnesium 1GM/D5W 100ML PREMIX PIGGYBACK IV ONE (17:30)
[2022-07-19] MEDS ORDERED: METOCLOPRAMIDE HCL 10 MG/2 ML VIAL IV ONE (17:30)
[2022-07-19] MEDS ORDERED: METOCLOPRAMIDE HCL 10 MG/2 ML VIAL ONE (17:34)
[2022-07-19] MEDS ORDERED: diphenhydrAMINE HCL 50 MG/ML VIAL ONE (17:34)
[2022-07-19] MEDS ORDERED: Magnesium 1GM/D5W 100ML PREMIX 100 ML IV ONE (17:34)
[2022-07-19 17:45] LABS: EOSINOPHILS % (MANUAL) 2 % (0-4); LYMPHOCYTES % (MANUAL) 25 % (16-48); MONOCYTES % (MANUAL) 1 % (0-11.0); NEUTROPHILS % (MANUAL) 72 (42-76)
[2022-07-19] MEDS ORDERED: RIZA10TA27 PO (18:13)
[2022-07-19] MEDS ORDERED: DAPA5TAB PO (18:13)
[2022-07-19] MEDS ORDERED: PANT40TA49 PO (18:13)
[2022-07-19] MEDS ORDERED: SITA100T PO (18:13)
[2022-07-19] MEDS ORDERED: PIOG15TA8 PO (18:13)
[2022-07-19] MEDS ORDERED: AMLO2.5T4 PO (18:13)
[2022-07-19] MEDS ORDERED: APIX5TAB PO (18:13)
[2022-07-19] MEDS ORDERED: NITR0.4T48 SL (18:13)
--- NOTE | 2022-07-19 18:13 | NUR ---
PT ON BED AWKE AOX4 USING HER CELLPHONE
--- NOTE | 2022-07-19 18:56 | NUR ---
MIXER FOAM RUBBER FROM [facility] CALLED REGARDING PT POSSIBLE TRANSFER TO ANOTHER HOSPITAL SHE WILL CALL BACK FOR CONFIRMATION
--- NOTE | 2022-07-19 18:57 | NUR ---
COVID SWAB DONE AND SENT TO LAB
--- NOTE | 2022-07-19 18:57 | NUR ---
PT IS AWAKE ON BED EATING DINNER STILL WITH LEFT ARM PAIN
--- NOTE | 2022-07-19 19:43 | NUR ---
[facility] [phone]
--- NOTE | 2022-07-19 20:22 | NUR ---
DR RIVERA ON THE PHONE WITH THE AT [facility]
--- NOTE | 2022-07-19 20:39 | NUR ---
[facility]-Transfer [phone]
--- NOTE | 2022-07-19 20:39 | NUR ---
PT GOT ACCEPTED AT [facility] ED UNDER CARE OF Anastasiia ROSEN # FOR REPORT: [phone] RIVERA OK TO TRANSFER VIA BLS. [facility] ETA: 45MIN
--- NOTE | 2022-07-19 20:44 | NUR ---
[facility]-Transfer [phone] Called and provided clinical report to
--- NOTE | 2022-07-19 21:42 | NUR ---
[place] [facility] [place]
== END 2022-07-19 21:50 | disposition hospice, inpatient (51) ==
LOC: ER 16:27
DX: R53.1 Weakness (principal); R51.9 Headache, unspecified; I50.9 Heart failure, unspecified; I48.91 Unspecified atrial fibrillation; M79.7 Fibromyalgia; F32.A Depression, unspecified; F41.9 Anxiety disorder, unspecified; Z90.89 Acquired absence of other organs; Z88.0 Allergy status to penicillin; Z88.8 Allergy status to other drugs, medicaments and biological substances; Z79.899 Other long term (current) drug therapy; Z20.822 Contact with and (suspected) exposure to COVID-19
CPT/HCPCS: 99291; 96365; 70450; 96375; 87426; 93005; 71045; 85025; 80048; 87040 ×2; 83605; 80076; 36415; 84484; 85730; 87081; 82962; 85007; J1200; J2765; J3475; C9803